=== PATIENT | female | born 1965 | race Caucasian/White ===

== ENCOUNTER 2022-01-22 13:01 | Emergency (ER) | payer BC ==
[2022-01-22] MEDS ORDERED: CYCLOBENZAPRINE10 MG PO (14:39)
[2022-01-22] MEDS ORDERED: NAPROSYN500 MG PO (14:39)
== END 2022-01-22 15:16 | disposition home or self-care (01) ==
LOC: ER1 13:01
DX: M51.37 Other intervertebral disc degeneration, lumbosacral region (principal); M43.17 Spondylolisthesis, lumbosacral region; Z88.7 Allergy status to serum and vaccine
CPT/HCPCS: 72100; 96372; 99283; J1885